=== PATIENT | female | born 1945 | race Two or more races ===

== ENCOUNTER 2017-08-16 08:31 | Outpatient (CLI) | payer OTHER ==
[~2017-08-16 08:31] MED LIST: ASA325 MG PO; CARDIZEM LA300 MG PO; PLAVIX75 MG PO; PROTONIX40 MG PO; SYNTHROID75 MCG PO; ZANTAC150 MG PO
== END 2017-08-16 08:39 | disposition home or self-care (01) ==
LOC: NUCLEAR 08:31
DX: I70.234 Atherosclerosis of native arteries of right leg with ulceration of heel and midfoot (principal); I73.89 Other specified peripheral vascular diseases

== ENCOUNTER 2017-08-17 08:42 | Outpatient (CLI) | payer OTHER | END 2017-08-17 10:56 | disposition home or self-care (01) | LOC: NUCLEAR 08:42 | DX: I87.2 Venous insufficiency (chronic) (peripheral) (principal); I73.9 Peripheral vascular disease, unspecified ==

== ENCOUNTER 2017-11-30 08:17 | Outpatient (CLI) | payer OTHER | END 2017-11-30 13:23 | disposition home or self-care (01) | LOC: NUCLEAR 08:17 | DX: E04.1 Nontoxic single thyroid nodule (principal) | CPT/HCPCS: 78013; A9512 ==

== ENCOUNTER 2018-01-19 09:38 | Outpatient (CLI) | payer OTHER | END 2018-01-19 09:41 | disposition home or self-care (01) | LOC: SONOGRAMA 09:38 | DX: E04.2 Nontoxic multinodular goiter (principal) ==

== ENCOUNTER 2018-06-21 11:51 | Outpatient (CLI) | payer OTHER | END 2018-06-21 12:00 | disposition home or self-care (01) | LOC: NUCLEAR 11:51 | DX: I73.9 Peripheral vascular disease, unspecified (principal) ==

== ENCOUNTER 2019-04-19 09:14 | Outpatient (CLI) | payer OTHER | END 2019-04-19 09:16 | disposition home or self-care (01) | LOC: SONOGRAMA 09:14 | DX: E04.1 Nontoxic single thyroid nodule (principal) ==

== ENCOUNTER 2019-11-02 08:18 | Outpatient (CLI) | payer OTHER | END 2019-11-02 08:25 | disposition home or self-care (01) | LOC: NUCLEAR 08:18 | PROVIDERS: ATTEND Surgery | DX: I73.9 Peripheral vascular disease, unspecified (principal) ==

== ENCOUNTER 2020-07-17 08:10 | Outpatient (CLI) | payer OTHER | END 2020-07-17 08:17 | disposition home or self-care (01) | LOC: SONOGRAMA 08:10 | PROVIDERS: ATTEND Pathology Anatomic Pathology & Clinical Pathology | DX: E04.1 Nontoxic single thyroid nodule (principal) ==

== ENCOUNTER 2024-11-19 07:13 | Outpatient (CLI) | payer OTHER | END 2024-11-19 07:14 | disposition home or self-care (01) | LOC: NUCLEAR 07:13 | DX: I25.118 Atherosclerotic heart disease of native coronary artery with other forms of angina pectoris (principal) | CPT/HCPCS: 78452; 93017; A9500; J0153 ==